=== PATIENT | female | born 1965 | race Caucasian/White ===

== ENCOUNTER 2021-07-13 18:44 | Emergency (ER) | payer OTHER ==
[2021-07-13 18:54] VITALS: BP 119/72; PULSE 103; TEMP 98.4; BMI 18.3
[2021-07-13] MEDS ORDERED: OLANZapine 5 MG TABLET PO ONE (21:09)
[2021-07-13] MEDS ORDERED: OLANZapine 10 MG TABLET ONE (21:13)
[2021-07-13] MEDS ORDERED: HALOPERIDOL LACTATE 5 MG/ML IM ONE (23:54)
== END 2021-07-14 00:49 ==
LOC: JER 18:44
PROC: 0H9LXZZ Drainage of Left Lower Leg Skin, External Approach (ICD-10-PCS; principal; 2021-07-13)
PROC: 3E023NZ Introduction of Analgesics, Hypnotics, Sedatives into Muscle, Percutaneous Approach (ICD-10-PCS; 2021-07-13)
DX: L02.416 Cutaneous abscess of left lower limb (principal); L03.115 Cellulitis of right lower limb
CPT/HCPCS: 10060; 96372; 99283-25

== ENCOUNTER 2022-09-17 21:17 | Emergency (ER) | payer OTHER ==
[2022-09-17 21:26] VITALS: RESP 18; BMI 17.4
[2022-09-17] MEDS ORDERED: DIPHTH,PERTUSS(ACELL),TET 0.5 ML DISP.SYRIN IM ONE (22:07)
[2022-09-17 22:59] LABS: BASO % 0.8 % (0-2.0); EOS % 1.7 % (0-4.5); HEMATOCRIT 36.4 % (32.4-45.2); HEMOGLOBIN 12.4 GM/dL (10.7-15.3); LYMPH % 23.9 % (8-40); MCH 32.1 pg (25.7-33.7); MEAN CELL VOLUME 94.3 fl (80-96); MEAN PLT VOLUME 9.7 fl (7.5-11.1); MONO % 10.8 % (3.8-10.2); NEUT % 62.8 % (42.8-82.8); PLATELET COUNT 188 10^3/uL (134-434); RBC 3.86 M/mm3 (3.60-5.2); RDW 12.7 % (11.6-15.6); WHITE BLOOD COUNT 9.5 K/mm3 (4.0-10.0)
[2022-09-17 23:20] LABS: CHLORIDE 110 mmol/L (98-107); SODIUM 144 mmol/L (136-145)
[2022-09-17 23:22] LABS: CALCIUM 8.4 mg/dL (8.5-10.1)
[2022-09-17 23:23] LABS: ALBUMIN 2.7 g/dl (3.4-5.0); ANION GAP 6 MMOL/L (8-16); BLOOD UREA NITROGEN 18.4 mg/dL (7-18); CO2 28 mmol/L (21-32); GLUCOSE,RANDOM 95 mg/dL (74-106); MAGNESIUM 2.4 mg/dL (1.8-2.4)
[2022-09-17 23:26] LABS: CREATININE 0.6 mg/dL (0.55-1.3); SGOT/AST 48 U/L (15-37)
[2022-09-17 23:28] LABS: SGPT/ALT 31 U/L (13-61); TOT PROT 6.8 g/dl (6.4-8.2)
[2022-09-17 23:29] LABS: ALK PHOS 122 U/L (45-117)
[2022-09-17 23:30] LABS: BILIRUBIN,TOTAL 0.4 mg/dL (0.2-1)
[2022-09-18] MEDS ORDERED: DIPHTH,PERTUSS(ACELL),TET 0.5 ML DISP.SYRIN IM ONE ×2 (00:15→00:18)
[2022-09-18 01:18] VITALS: BP 96/59; PULSE 64; TEMP 97
== END 2022-09-18 02:34 ==
LOC: JER 21:17
PROC: 0HQ1XZZ Repair Face Skin, External Approach (ICD-10-PCS; principal; 2022-09-17)
PROC: 3E0234Z Introduction of Serum, Toxoid and Vaccine into Muscle, Percutaneous Approach (ICD-10-PCS; 2022-09-17)
DX: S01.81XA Laceration without foreign body of other part of head, initial encounter (principal); W19.XXXA Unspecified fall, initial encounter
CPT/HCPCS: 0241U-QW; 12011-25; 36415; 70450-TC; 71045-TC-FY; 72125-TC; 72170-TC-FY; 80053; 83735; 84484; 85025; 90471; 90715; 93005; 93010; 99285-25

== ENCOUNTER 2023-10-22 06:14 | Observation (INO) | payer OTHER ==
[2023-10-22] MEDS ORDERED: HALOPERIDOL LACTATE 5 MG/ML IM ONE (08:26)
[2023-10-22] MEDS ORDERED: HALOPERIDOL LACTATE 5 MG/ML ONE (08:36)
[2023-10-22 08:50] LABS: BASO % 0.3 % (0-2.0); HEMATOCRIT 36.4 % (32.4-45.2); HEMOGLOBIN 11.8 GM/dL (10.7-15.3); LYMPH % 17.1 % (8-40); MCH 32.3 pg (25.7-33.7); MCHC 32.4 g/dl (32.0-36.0); MEAN CELL VOLUME 99.8 fl (80-96); MEAN PLT VOLUME 9.3 fl (7.5-11.1); MONO % 7.4 % (3.8-10.2); NEUT % 75.2 % (42.8-82.8); PLATELET COUNT 218 10^3/uL (134-434); RBC 3.65 M/mm3 (3.60-5.2); RDW 13.5 % (11.6-15.6); WHITE BLOOD COUNT 8.1 K/mm3 (4.0-10.0)
[2023-10-22 08:55] LABS: EPI CELLS 28 /uL (0-25.1); HYALINE CASTS 1 /uL (0-3.1); URINE APPEARANCE CLEAR; URINE BACTERIA 53 /uL (0-1359); URINE BILIRUBIN NEGATIVE (NEGATIVE); URINE COLOR YELLOW; URINE GLUCOSE (UA) NEGATIVE (NEGATIVE); URINE KETONE 1+ (NEGATIVE); URINE LEUK ESTERASE 2+ (NEGATIVE); URINE NITRITE NEGATIVE (NEGATIVE); URINE PROTEIN NEGATIVE (NEGATIVE); URINE RBC 13 /uL (0-23.9); URINE UROBILINOGEN 0.2 mg/dL (0.2-1.0); URINE WBC 185 /uL (0-25.8)
[2023-10-22 08:56] LABS: INR 1.03 (0.83-1.09)
[2023-10-22 08:59] LABS: ACTIVATED PTT 19.7 SECONDS (25.2-36.5)
[2023-10-22 09:20] LABS: CALCIUM 8.9 mg/dL (8.5-10.1)
[2023-10-22 09:21] LABS: ALBUMIN 3.2 g/dl (3.4-5.0); BLOOD UREA NITROGEN 19.6 mg/dL (7-18); MAGNESIUM 2.4 mg/dL (1.8-2.4)
[2023-10-22 09:24] LABS: CREATININE 0.5 mg/dL (0.55-1.3)
[2023-10-22 09:25] LABS: BILIRUBIN,TOTAL 0.4 mg/dL (0.2-1); TOT PROT 7.3 g/dl (6.4-8.2)
[2023-10-22] MEDS ORDERED: SODIUM CHLORIDE 0.9% 500 ML INFUS.BAG IV ONE (13:35)
[2023-10-22] MEDS: D5-1/2NS+20 MEQ KCL - 20 MEQ/1,000 ML INFUS.BAG IV SCH (18:48)
[2023-10-22] MEDS: MIRTAZAPINE 15 MG TABLET (FP) PO SCH (22:28)
[2023-10-22] MEDS: HEPARIN NA (PORCINE) 5,000 UNITS/ML 1ML VIAL SQ SCH (22:28)
[2023-10-23 06:54] LABS: POTASSIUM 3.7 mmol/L (3.5-5.1)
[2023-10-23 06:57] LABS: CALCIUM 8.1 mg/dL (8.5-10.1)
[2023-10-23 06:58] LABS: ALBUMIN 2.7 g/dl (3.4-5.0); BLOOD UREA NITROGEN 11.4 mg/dL (7-18); MAGNESIUM 2.2 mg/dL (1.8-2.4)
[2023-10-23 07:00] LABS: BASO % 0.6 % (0-2.0); EOS % 1.6 % (0-4.5); HEMATOCRIT 34.3 % (32.4-45.2); HEMOGLOBIN 11.2 GM/dL (10.7-15.3); LYMPH % 37.7 % (8-40); MCH 32.6 pg (25.7-33.7); MCHC 32.7 g/dl (32.0-36.0); MEAN CELL VOLUME 99.6 fl (80-96); MEAN PLT VOLUME 9.5 fl (7.5-11.1); MONO % 9.9 % (3.8-10.2); NEUT % 50.2 % (42.8-82.8); PLATELET COUNT 194 10^3/uL (134-434); RBC 3.45 M/mm3 (3.60-5.2); RDW 13.5 % (11.6-15.6)
[2023-10-23 07:01] LABS: CREATININE 0.4 mg/dL (0.55-1.3)
[2023-10-23 07:03] LABS: BILIRUBIN,TOTAL 0.4 mg/dL (0.2-1); TOT PROT 6.2 g/dl (6.4-8.2)
[2023-10-23] MEDS ORDERED: DIVALPROEX SODIUM 250 MG TABLET E.C. PO SCH (10:00)
[2023-10-23] MEDS ORDERED: DIVALPROEX SODIUM 125 MG TABLET E.C. PO SCH (10:00)
[2023-10-23] MEDS: HEPARIN NA (PORCINE) 5,000 UNITS/ML 1ML VIAL SQ SCH ×2 (10:43→21:18)
[2023-10-23] MEDS: OLANZapine 2.5 MG TABLET PO SCH (10:43)
[2023-10-23] MEDS: D5-1/2NS+20 MEQ KCL - 20 MEQ/1,000 ML INFUS.BAG IV SCH (17:58)
[2023-10-23] MEDS: MIRTAZAPINE 15 MG TABLET (FP) PO SCH (21:18)
[2023-10-24] MEDS: D5-1/2NS+20 MEQ KCL - 20 MEQ/1,000 ML INFUS.BAG IV SCH (04:08)
[2023-10-24] MEDS: OLANZapine 2.5 MG TABLET PO SCH (09:28)
[2023-10-24] MEDS: HEPARIN NA (PORCINE) 5,000 UNITS/ML 1ML VIAL SQ SCH ×2 (09:28→21:08)
[2023-10-24] MEDS: MIRTAZAPINE 15 MG TABLET (FP) PO SCH (21:08)
[2023-10-25] MEDS: D5-1/2NS+20 MEQ KCL - 20 MEQ/1,000 ML INFUS.BAG IV SCH (04:38)
[2023-10-25] MEDS: HEPARIN NA (PORCINE) 5,000 UNITS/ML 1ML VIAL SQ SCH ×2 (10:31→21:34)
[2023-10-25] MEDS: OLANZapine 2.5 MG TABLET PO SCH (10:31)
[2023-10-25] MEDS: MIRTAZAPINE 15 MG TABLET (FP) PO SCH (21:34)
[2023-10-25] MEDS: DIVALPROEX SODIUM 125 MG SPRINKLE CAPS PO SCH (21:34)
[2023-10-25 21:55] VITALS: BMI 22.8
[2023-10-26] MEDS: DIVALPROEX SODIUM 125 MG SPRINKLE CAPS PO SCH ×2 (09:54→22:25)
[2023-10-26] MEDS: OLANZapine 2.5 MG TABLET PO SCH (09:54)
[2023-10-26] MEDS: HEPARIN NA (PORCINE) 5,000 UNITS/ML 1ML VIAL SQ SCH ×2 (09:54→22:25)
[2023-10-26 10:16] LABS: POTASSIUM 4.3 mmol/L (3.5-5.1)
[2023-10-26 10:19] LABS: ALBUMIN 3.2 g/dl (3.4-5.0); BLOOD UREA NITROGEN 15.1 mg/dL (7-18)
[2023-10-26 10:22] LABS: CREATININE 0.6 mg/dL (0.55-1.3)
[2023-10-26 10:24] LABS: BILIRUBIN,TOTAL 0.4 mg/dL (0.2-1); TOT PROT 7.4 g/dl (6.4-8.2)
[2023-10-26] MEDS: MIRTAZAPINE 15 MG TABLET (FP) PO SCH (22:25)
[2023-10-27 06:40] VITALS: RESP 18
[2023-10-27] MEDS: OLANZapine 2.5 MG TABLET PO SCH (09:40)
[2023-10-27] MEDS: DIVALPROEX SODIUM 125 MG SPRINKLE CAPS PO SCH (09:40)
[2023-10-27] MEDS: HEPARIN NA (PORCINE) 5,000 UNITS/ML 1ML VIAL SQ SCH (09:40)
[2023-10-27 17:53] VITALS: BP 119/54; PULSE 97; TEMP 99.5
== END 2023-10-27 19:59 ==
LOC: JER 06:14 → JERBED 07:35 → J4S 15:30
PROVIDERS: ADMIT Family Medicine; ATTEND Family Medicine
PROC: 3E023GC Introduction of Other Therapeutic Substance into Muscle, Percutaneous Approach (ICD-10-PCS; principal; 2023-10-22)
PROC: 3E033NZ Introduction of Analgesics, Hypnotics, Sedatives into Peripheral Vein, Percutaneous Approach (ICD-10-PCS; 2023-10-22)
PROC: 3E0337Z Introduction of Electrolytic and Water Balance Substance into Peripheral Vein, Percutaneous Approach (ICD-10-PCS; 2023-10-22)
DX: S01.91XA Laceration without foreign body of unspecified part of head, initial encounter (principal); F22 Delusional disorders; F25.9 Schizoaffective disorder, unspecified; M24.529 Contracture, unspecified elbow; F41.9 Anxiety disorder, unspecified; F03.90 Unspecified dementia, unspecified severity, without behavioral disturbance, psychotic disturbance, mood disturbance, and anxiety; W18.39XA Other fall on same level, initial encounter; Y93.89 Activity, other specified; Y92.099 Unspecified place in other non-institutional residence as the place of occurrence of the external cause; R29.6 Repeated falls; M62.82 Rhabdomyolysis; G93.41 Metabolic encephalopathy
CPT/HCPCS: 0241U-QW; 36415; 70450-TC; 71045-TC-FY; 72125-TC; 72170-TC-FY; 80048; 80053; 81003; 82550; 82553; 83735; 84443; 84484; 85025; 85610; 85730; 86850; 86900; 86901; 87086; 93005; 93010; 96372; 96374; 97116-GP; 97161-GP; 99285-25; G0378; J1644